=== PATIENT | female | born 1945 | race Caucasian/White ===

== ENCOUNTER 2017-12-29 11:48 | Observation (INO) | payer SELFPAY, MEDICAID ==
[2017-12-29] MEDS: NS 1,000 ML IV ×2 (12:56→16:13)
[2017-12-29] MEDS: PANTOPRAZOLE 40MG INJ (PROTONIX) (C9113) IV (12:56)
[2017-12-29 13:03] LABS: BASO # 0.1 10^3/uL (0.0-0.2); BASO % 0.4 % (0.0-1.0); EOS % 0.3 % (0.0-3.0); HEMATOCRIT 42.3 % (36.0-47.0); HEMOGLOBIN 13.4 g/dl (12.0-15.5); IMMATURE GRANULOCYTE % 0.3 % (0-3.0); LYMPH % 15.1 % (24.0-44.0); MEAN CORPUSCULAR HEMOGLOBIN 28.7 pg (27.0-33.0); MEAN CORPUSCULAR HGB CONC 31.7 g/dl (32.0-36.5); MEAN CORPUSCULAR VOLUME 90.6 fl (80.0-96.0); MONO % 7.2 % (0.0-5.0); NEUTROPHILS # 10.2 10^3/uL (1.8-7.7); NEUTROPHILS % 76.7 % (36.0-66.0); PLATELET COUNT, AUTOMATED 393 10^3/uL (150-450); RED BLOOD COUNT 4.67 10^6/uL (4.00-5.40); RED CELL DISTRIBUTION WIDTH 13.4 % (11.5-14.5); WHITE BLOOD COUNT 13.3 10^3/uL (4.0-10.0)
[2017-12-29 13:18] LABS: AMORPHOUS SEDIMENT RFX SMALL (NEGATIVE); KETONE, URINE AUTO RFX NEGATIVE (NEGATIVE); MUCUS, URINE RFX SMALL (NEGATIVE); NITRITE, URINE AUTO RFX NEGATIVE (NEGATIVE); RBC, URINE AUTO RFX 0 /HPF (0-3); SPECIFIC GRAVITY UR AUTO RFX 1.025 (1.002-1.035); SQUAM EPITHELIAL CELL UR AURFX 2 /HPF (0-6); WBC, URINE AUTO RFX 5 /HPF (0-3)
[2017-12-29 13:19] LABS: LEUKOCYTE ESTERASE UR AUTO RFX 1+ (NEGATIVE)
[2017-12-29 13:41] LABS: ALBUMIN 3.7 GM/DL (3.2-5.2); ALBUMIN/GLOBULIN RATIO 0.95 (1.00-1.93); ALKALINE PHOSPHATASE 116 U/L (45-117); ALT/SGPT 65 U/L (12-78); AMYLASE 77 U/L (25-115); ANION GAP 5 MEQ/L (8-16); AST/SGOT 117 U/L (7-37); BILIRUBIN,DIRECT 0.3 MG/DL (0.0-0.2); BILIRUBIN,TOTAL 0.9 MG/DL (0.2-1.0); BLOOD UREA NITROGEN 18 MG/DL (7-18); CALCIUM LEVEL 8.9 MG/DL (8.8-10.2); CARBON DIOXIDE LEVEL 28 MEQ/L (21-32); CHLORIDE LEVEL 106 MEQ/L (98-107); CREATININE FOR GFR 0.93 MG/DL (0.55-1.30); GLOMERULAR FILTRATION RATE > 60.0 (>39); GLUCOSE, FASTING 115 MG/DL (70-100); LIPASE 533 U/L (73-393); POTASSIUM SERUM 5.1 MEQ/L (3.5-5.1); SODIUM LEVEL 139 MEQ/L (136-145); TOTAL PROTEIN 7.6 GM/DL (6.4-8.2)
[2017-12-29] MEDS ORDERED: ISOVUE-370 76% 100ML VIAL (Q9967) As Ordered (14:20)
[2017-12-29] MEDS: PIPERACILLIN/TAZOBACTAM SOD 3.375 GM in D5W MINI-BAG PLUS 50 ML IV ×2 (16:13→22:51)
[2017-12-29] MEDS ORDERED: KETOROLAC 30 MG/ML VIAL (J1885) IV (21:00)
[2017-12-29] MEDS ORDERED: ONDANSETRON 4MG/2ML VIAL (J2405) IV (21:00)
[2017-12-29] MEDS ORDERED: NORCO, ANEXSIA 5/325MG TABLET (HYDROcodone/ACETAMINOPHEN) PO (21:00)
[2017-12-29] MEDS: SENOKOT S TAB PO (22:50)
[2017-12-29] MEDS: KCL 20MEQ IN D5/0.45NS 1000ML 1,000 ML IV (22:50)
[2017-12-29] MEDS: ACETAMINOPHEN TAB 650MG DOSE (2X325MG) PO (23:14)
[2017-12-30] MEDS: PIPERACILLIN/TAZOBACTAM SOD 3.375 GM in D5W MINI-BAG PLUS 50 ML IV ×2 (04:14→09:22)
[2017-12-30] MEDS: HEPARIN SOD (PORCINE) 5000 UNITS/ML VIAL SC (06:36)
[2017-12-30 07:23] LABS: HEMATOCRIT 37.5 % (36.0-47.0); HEMOGLOBIN 11.8 g/dl (12.0-15.5); MEAN CORPUSCULAR HEMOGLOBIN 28.8 pg (27.0-33.0); MEAN CORPUSCULAR HGB CONC 31.5 g/dl (32.0-36.5); MEAN CORPUSCULAR VOLUME 91.5 fl (80.0-96.0); PLATELET COUNT, AUTOMATED 323 10^3/uL (150-450); RED CELL DISTRIBUTION WIDTH 13.4 % (11.5-14.5)
[2017-12-30 07:53] LABS: ALBUMIN 2.9 GM/DL (3.2-5.2); ALBUMIN/GLOBULIN RATIO 0.85 (1.00-1.93); ALKALINE PHOSPHATASE 95 U/L (45-117); ALT/SGPT 39 U/L (12-78); ANION GAP 5 MEQ/L (8-16); AST/SGOT 24 U/L (7-37); BILIRUBIN,TOTAL 0.7 MG/DL (0.2-1.0); BLOOD UREA NITROGEN 9 MG/DL (7-18); CARBON DIOXIDE LEVEL 28 MEQ/L (21-32); CHLORIDE LEVEL 108 MEQ/L (98-107); CREATININE FOR GFR 0.95 MG/DL (0.55-1.30); GLOMERULAR FILTRATION RATE > 60.0 (>39); GLUCOSE, FASTING 132 MG/DL (70-100); LIPASE 66 U/L (73-393); MAGNESIUM LEVEL 2.1 MG/DL (1.8-2.4); SODIUM LEVEL 141 MEQ/L (136-145); TOTAL PROTEIN 6.3 GM/DL (6.4-8.2)
[2017-12-30] MEDS: SENOKOT S TAB PO (09:22)
[2017-12-30] MEDS: PANTOPRAZOLE 40MG TAB (PROTONIX) PO (09:22)
[2017-12-30] MEDS: KCL 20MEQ IN D5/0.45NS 1000ML 1,000 ML IV (09:23)
== END 2017-12-30 13:45 | disposition home or self-care (01) ==
LOC: M ED 11:48 → M ED INP 20:15 → M PED 22:22
DX: K81.9 Cholecystitis, unspecified (principal); R30.0 Dysuria; F17.210 Nicotine dependence, cigarettes, uncomplicated
CPT/HCPCS: C9113

== ENCOUNTER 2018-02-04 08:32 | Day surgery (SDC) | payer SELFPAY ==
[~2018-02-04 08:32] MED LIST: LIDOCAINE 2% INJ 100 MG/5 ML SDV (FOR ANES.) As Ordered; MIDAZOLAM INJ 2 MG/2 ML VIAL (J2250) As Ordered; PROPOFOL 200 MG/20 ML VIAL As Ordered; ROCURONIUM BROMIDE 50 MG/5 ML VIAL As Ordered; SUCCINYLCHOLINE 100 MG/5 ML SYRINGE (J0330) As Ordered; dexameTHASONE 4 MG/ML 1ML VIAL (J1100) As Ordered; fentaNYL 250 MCG/5 ML INJECTION (J3010) As Ordered
[2018-02-04] MEDS: LR 1,000 ML IV (09:22)
[2018-02-04] MEDS ORDERED: LIDOCAINE 2% JELLY 30 ML As Ordered (10:20)
[2018-02-04] MEDS ORDERED: NEOSTIGMINE 10 MG/10 ML VIAL (J2710) As Ordered (10:20)
[2018-02-04] MEDS ORDERED: PROPOFOL 200 MG/20 ML VIAL As Ordered (10:20)
[2018-02-04] MEDS ORDERED: KETOROLAC 60 MG/2 ML VIAL (J1885) As Ordered (10:20)
[2018-02-04] MEDS ORDERED: ROCURONIUM BROMIDE 50 MG/5 ML VIAL As Ordered (10:20)
[2018-02-04] MEDS ORDERED: GLYCOPYRROLATE INJ 0.2 MG/ML 2 ML VIAL As Ordered (10:20)
[2018-02-04] MEDS ORDERED: dexameTHASONE 4 MG/ML 1ML VIAL (J1100) As Ordered (10:20)
[2018-02-04] MEDS ORDERED: ONDANSETRON 4MG/2ML VIAL (J2405) As Ordered (10:20)
[2018-02-04] MEDS ORDERED: LIDOCAINE 2% INJ 100 MG/5 ML SDV (FOR ANES.) As Ordered (10:20)
[2018-02-04] MEDS ORDERED: MIDAZOLAM INJ 2 MG/2 ML VIAL (J2250) As Ordered (10:21)
[2018-02-04] MEDS ORDERED: fentaNYL 100 MCG/2 ML INJECTION (J3010) As Ordered (10:21)
[2018-02-04] MEDS ORDERED: PHENYLephrine HCL 500 MCG/5 ML (100MCG/ML) SYRINGE (J2370) As Ordered (11:20)
[2018-02-04] MEDS: BUPIVACAINE/EPIN 0.25% 30 ML VIAL As Ordered (11:57)
[2018-02-04] MEDS ORDERED: LABETALOL HCL 100 MG/20 ML VIAL As Ordered (11:59)
[2018-02-04] MEDS: LABETALOL HCL 100 MG/20 ML VIAL IV ×3 (12:25→12:40)
[2018-02-04] MEDS ORDERED: LR 1,000 ML IV (12:45)
[2018-02-04] MEDS ORDERED: NORCO, ANEXSIA 5/325MG TABLET (HYDROcodone/ACETAMINOPHEN) PO (12:45)
[2018-02-04] MEDS ORDERED: ONDANSETRON 4MG/2ML VIAL (J2405) IV (12:45)
[2018-02-04] MEDS: fentaNYL 100 MCG/2 ML INJECTION (J3010) IV ×4 (12:57→13:20)
[2018-02-04] MEDS: PERCOCET 5MG/325MG TAB PO ×2 (13:09→14:19)
[2018-02-04] MEDS ORDERED: PERCOCET 5MG/325MG TAB As Ordered (14:17)
== END 2018-02-04 15:45 | disposition home or self-care (01) ==
LOC: M SDC 08:32
DX: K80.18 Calculus of gallbladder with other cholecystitis without obstruction (principal); I10 Essential (primary) hypertension; Z86.711 Personal history of pulmonary embolism; J45.909 Unspecified asthma, uncomplicated; F17.210 Nicotine dependence, cigarettes, uncomplicated; Z79.899 Other long term (current) drug therapy
CPT/HCPCS: 47562

== ENCOUNTER 2019-05-02 19:24 | Emergency (ER) | payer SELFPAY ==
[~2019-05-02 19:24] MED LIST changes: +AUGM500T34 PO; -LIDOCAINE 2% INJ 100 MG/5 ML SDV (FOR ANES.) As Ordered; +MAGN400C PO; +MELA5TAB21 PO; -MIDAZOLAM INJ 2 MG/2 ML VIAL (J2250) As Ordered; -PROPOFOL 200 MG/20 ML VIAL As Ordered; -ROCURONIUM BROMIDE 50 MG/5 ML VIAL As Ordered; -SUCCINYLCHOLINE 100 MG/5 ML SYRINGE (J0330) As Ordered; -dexameTHASONE 4 MG/ML 1ML VIAL (J1100) As Ordered; -fentaNYL 250 MCG/5 ML INJECTION (J3010) As Ordered
[2019-05-02] MEDS ORDERED: PROAAER10 INH (19:52)
[2019-05-02] MEDS ORDERED: amLODIPine 5 MG TAB PO ONE (20:30)
--- NOTE | 2019-05-02 20:43 | REPVR ---
PROCEDURE INFORMATION: Exam: CT Head Without Contrast Exam date and time: 05/02/2019 8:27 PM Age: 73 years old Clinical indication: Dizziness; Additional info: Hypertension, dizziness TECHNIQUE: Imaging protocol: Computed tomography of the head without contrast. Radiation optimization: All CT scans at this facility use at least one of these dose optimization techniques: automated exposure control; mA and/or kV adjustment per patient size (includes targeted exams where dose is matched to clinical indication); or iterative reconstruction. COMPARISON: No relevant prior studies available. FINDINGS: Brain: Normal. No hemorrhage. Unremarkable white matter. No mass effect. Ventricles: Normal. No ventriculomegaly. Bones/joints: Unremarkable. No acute fracture. Sinuses: Visualized sinuses are unremarkable. No fluid levels. Mastoid air cells: Visualized mastoid air cells are well aerated. Soft tissues: Unremarkable. IMPRESSION: No acute intracranial abnormality. Electronically signed by: Hipolito Lepe On 05/02/2019 20:43:51 PM
[2019-05-02 20:54] VITALS: BP 220/91
[2019-05-02 21:08] LABS: BASO # 0.1 10^3/uL (0.0-0.2); BASO % 0.6 % (0.0-1.0); EOS # 0.1 10^3/uL (0.0-0.5); HEMOGLOBIN 13.5 g/dl (12.0-15.5); LYMPH # 3.2 10^3/uL (1.5-5.0); LYMPH % 38.7 % (24.0-44.0); MEAN CORPUSCULAR HGB CONC 30.7 g/dl (32.0-36.5); MEAN CORPUSCULAR VOLUME 94.6 fl (80.0-96.0); MONO # 0.6 10^3/uL (0.0-0.8); MONO % 7.4 % (0.0-5.0); NEUTROPHILS # 4.3 10^3/uL (1.5-8.5); NEUTROPHILS % 52.1 % (36.0-66.0); PLATELET COUNT, AUTOMATED 336 10^3/uL (150-450); RED BLOOD COUNT 4.65 10^6/uL (4.00-5.40); WHITE BLOOD COUNT 8.2 10^3/uL (4.0-10.0)
[2019-05-02 21:23] LABS: BLOOD UREA NITROGEN 15 MG/DL (7-18); CALCIUM LEVEL 8.7 MG/DL (8.8-10.2); CARBON DIOXIDE LEVEL 30 MEQ/L (21-32); CHLORIDE LEVEL 106 MEQ/L (98-107); CK-MB VALUE MASS 3.1 NG/ML (<3.6); CPK CREATINE PHOSPHOKINASE 91 U/L (26-192); CREATININE FOR GFR 0.93 MG/DL (0.55-1.30); GLOMERULAR FILTRATION RATE > 60.0 (>39); GLUCOSE, FASTING 106 MG/DL (70-100); MB/CK RELATIVE INDEX 3.41 (< OR =4); SODIUM LEVEL 141 MEQ/L (136-145); TROPONIN I < 0.02 NG/ML (< 0.10)
[2019-05-02] MEDS ORDERED: NORV5TAB PO (22:38)
[2019-05-02 22:55] VITALS: BP 133/62
--- NOTE | 2019-05-03 03:27 | REP ---
clinical: Chest pain . Comparison: None . Findings: The mediastinum and cardiac silhouette are stable and within normal limits for portable technique. The lung carvajal are clear without acute consolidation, effusion, or pneumothorax. Skeletal structures are intact. Impression: No acute cardiopulmonary process appreciated. Electronically Signed by Jason Hernandez MD 05/03/2019 03:19 A
--- NOTE | 2019-05-03 15:00 | ECGEPIP ---
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
== END 2019-05-02 22:56 | disposition home or self-care (01) ==
LOC: M ED 19:24 → EDBD 19:24 → M ED 22:56
DX: I10 Essential (primary) hypertension (principal); R94.31 Abnormal electrocardiogram [ECG] [EKG]; J45.909 Unspecified asthma, uncomplicated; Z79.51 Long term (current) use of inhaled steroids; Z79.899 Other long term (current) drug therapy

== ENCOUNTER → 2019-05-12 | Outpatient (REF) | payer SELFPAY ==
[~2019-05-12] MED LIST changes: +NORV5TAB PO; +PROAAER10 INH
[2019-05-12 18:22] LABS: BASO # 0.1 10^3/uL (0.0-0.2); BASO % 0.8 % (0.0-1.0); EOS # 0.1 10^3/uL (0.0-0.5); EOS % 0.8 % (0.0-3.0); HEMATOCRIT 41.7 % (36.0-47.0); HEMOGLOBIN 13.2 g/dl (12.0-15.5); LYMPH # 2.2 10^3/uL (1.5-5.0); LYMPH % 28.5 % (24.0-44.0); MEAN CORPUSCULAR HEMOGLOBIN 30.1 pg (27.0-33.0); MEAN CORPUSCULAR HGB CONC 31.7 g/dl (32.0-36.5); MEAN CORPUSCULAR VOLUME 95.2 fl (80.0-96.0); MONO # 0.5 10^3/uL (0.0-0.8); NEUTROPHILS # 4.7 10^3/uL (1.5-8.5); NEUTROPHILS % 62.2 % (36.0-66.0); PLATELET COUNT, AUTOMATED 329 10^3/uL (150-450); RED BLOOD COUNT 4.38 10^6/uL (4.00-5.40); WHITE BLOOD COUNT 7.6 10^3/uL (4.0-10.0)
[2019-05-12 18:40] LABS: ALBUMIN 3.7 GM/DL (3.2-5.2); ALT/SGPT 19 U/L (12-78); BILIRUBIN,TOTAL 0.5 MG/DL (0.2-1.0); BLOOD UREA NITROGEN 18 MG/DL (7-18); CALCIUM LEVEL 8.7 MG/DL (8.8-10.2); CARBON DIOXIDE LEVEL 28 MEQ/L (21-32); CHLORIDE LEVEL 106 MEQ/L (98-107); CHOLESTEROL LEVEL 210 MG/DL (<200); CHOLESTEROL RISK RATIO 2.727 (<5); CREATININE FOR GFR 0.93 MG/DL (0.55-1.30); FREE T4 1.12 NG/DL (0.76-1.46); GLOMERULAR FILTRATION RATE > 60.0 (>39); GLUCOSE, FASTING 95 MG/DL (70-100); HDL CHOLESTEROL 77 MG/DL (>40); LDL CHOLESTEROL 109 MG/DL (<100); NON-HDL-C 133 MG/DL; POTASSIUM SERUM 4.4 MEQ/L (3.5-5.1); SODIUM LEVEL 142 MEQ/L (136-145); TOTAL PROTEIN 6.6 GM/DL (6.4-8.2); TRIGLYCERIDES LEVEL 122 MG/DL (<150)
[2019-05-12 18:41] LABS: TOTAL 25(OH) VITAMIN D 17.6 NG/ML (30.0-100.0)
[2019-05-12 18:53] LABS: HEMOGLOBIN A1c 6.1 %
== END ==
LOC: M LAB REF 17:55
PROVIDERS: ATTEND Nurse Practitioner Family
DX: Z13.9 Encounter for screening, unspecified (principal); I16.0 Hypertensive urgency

== ENCOUNTER → 2019-10-31 | Outpatient (REF) | payer SELFPAY ==
[2019-11-27 12:23] LABS: BASO % 0.5 % (0.0-1.0); EOS # 0.1 10^3/uL (0.0-0.5); EOS % 0.9 % (0.0-3.0); LYMPH # 2.3 10^3/uL (1.5-5.0); LYMPH % 30.2 % (24.0-44.0); MEAN CORPUSCULAR HEMOGLOBIN 29.9 pg (27.0-33.0); MEAN CORPUSCULAR HGB CONC 31.7 g/dl (32.0-36.5); MEAN CORPUSCULAR VOLUME 94.3 fl (80.0-96.0); MONO # 0.5 10^3/uL (0.0-0.8); MONO % 6.4 % (0.0-5.0); NEUTROPHILS # 4.8 10^3/uL (1.5-8.5); NEUTROPHILS % 61.7 % (36.0-66.0); PLATELET COUNT, AUTOMATED 331 10^3/uL (150-450); RED BLOOD COUNT 4.35 10^6/uL (4.00-5.40); WHITE BLOOD COUNT 7.8 10^3/uL (4.0-10.0)
[2019-12-13 13:16] LABS: ALBUMIN 3.8 GM/DL (3.2-5.2); BILIRUBIN,TOTAL 0.5 MG/DL (0.2-1.0); CHOLESTEROL RISK RATIO 2.835 (<5); CREATININE FOR GFR 1.04 MG/DL (0.55-1.30); GLOMERULAR FILTRATION RATE 55.3 (>39); HEMOGLOBIN A1c 5.8 %; POTASSIUM SERUM 4.5 MEQ/L (3.5-5.1); TOTAL PROTEIN 6.8 GM/DL (6.4-8.2)
== END ==
LOC: M LAB REF 16:32
PROVIDERS: ATTEND Nurse Practitioner Family
DX: R06.09 Other forms of dyspnea (principal); I10 Essential (primary) hypertension; R06.2 Wheezing; R73.03 Prediabetes; Z13.9 Encounter for screening, unspecified; M54.5 Low back pain

== ENCOUNTER → 2019-12-26 | Outpatient (REF) | payer SELFPAY ==
[2019-12-26 17:18] LABS: APPEARANCE, URINE CLEAR (CLEAR); BACTERIA, URINE AUTO NEGATIVE (NEGATIVE); BILIRUBIN, URINE AUTO NEGATIVE (NEGATIVE); BLOOD, URINE BLOOD NEGATIVE (NEGATIVE); COLOR, URINE YELLOW (YELLOW); GLUCOSE, URINE (UA) AUTO NEGATIVE (NEGATIVE); KETONE, URINE AUTO NEGATIVE (NEGATIVE); LEUKOCYTE ESTERASE, URINE AUTO NEGATIVE (NEGATIVE); NITRITE, URINE AUTO NEGATIVE (NEGATIVE); PROTEIN, URINE AUTO NEGATIVE (NEGATIVE); RBC, URINE AUTO 0 /HPF (0-3); SPECIFIC GRAVITY URINE AUTO 1.013 (1.002-1.035); SQUAMOUS EPITHELIAL CELL UR AU 0 /HPF (0-6); UROBILINOGEN, URINE AUTO 0.2 mg/dL (0.0-2.0); WBC, URINE AUTO 2 /HPF (0-3)
== END ==
LOC: M LAB REF 16:24
PROVIDERS: ATTEND Nurse Practitioner Family
DX: R35.0 Frequency of micturition (principal)

== ENCOUNTER → 2020-01-30 | Outpatient (REF) | payer SELFPAY ==
[2020-01-30 17:25] LABS: BASO % 0.6 % (0.0-1.0); EOS # 0.1 10^3/uL (0.0-0.5); HEMOGLOBIN 12.9 g/dl (12.0-15.5); LYMPH # 2.2 10^3/uL (1.5-5.0); LYMPH % 31.5 % (24.0-44.0); MEAN CORPUSCULAR HEMOGLOBIN 29.7 pg (27.0-33.0); MEAN CORPUSCULAR HGB CONC 31.5 g/dl (32.0-36.5); MEAN CORPUSCULAR VOLUME 94.5 fl (80.0-96.0); MONO # 0.6 10^3/uL (0.0-0.8); MONO % 8.6 % (0.0-5.0); NEUTROPHILS # 4.1 10^3/uL (1.5-8.5); PLATELET COUNT, AUTOMATED 341 10^3/uL (150-450); RED BLOOD COUNT 4.34 10^6/uL (4.00-5.40); WHITE BLOOD COUNT 7.1 10^3/uL (4.0-10.0)
[2020-01-30 21:10] LABS: ALBUMIN 3.8 GM/DL (3.2-5.2); BILIRUBIN,TOTAL 0.6 MG/DL (0.2-1.0); CALCIUM LEVEL 9.3 MG/DL (8.8-10.2); CHOLESTEROL RISK RATIO 3.072 (<5); CREATININE FOR GFR 1.09 MG/DL (0.55-1.30); GLOMERULAR FILTRATION RATE 52.4 (>39); POTASSIUM SERUM 4.7 MEQ/L (3.5-5.1); TOTAL PROTEIN 6.7 GM/DL (6.4-8.2)
[2020-01-30 21:14] LABS: TOTAL 25(OH) VITAMIN D 24.9 NG/ML (30.0-100.0)
== END ==
LOC: M LAB REF 16:14
PROVIDERS: ATTEND Nurse Practitioner Family
DX: R06.09 Other forms of dyspnea (principal); I10 Essential (primary) hypertension; Z13.9 Encounter for screening, unspecified; M54.5 Low back pain; R73.03 Prediabetes; E78.00 Pure hypercholesterolemia, unspecified

== ENCOUNTER → 2020-05-16 | Outpatient (REF) | payer SELFPAY ==
[2020-05-16 17:36] LABS: BASO # 0.1 10^3/uL (0.0-0.2); BASO % 0.8 % (0.0-1.0); EOS # 0.1 10^3/uL (0.0-0.5); EOS % 1.1 % (0.0-3.0); HEMATOCRIT 41.7 % (36.0-47.0); HEMOGLOBIN 13.1 g/dl (12.0-15.5); LYMPH # 2.3 10^3/uL (1.5-5.0); LYMPH % 30.5 % (24.0-44.0); MEAN CORPUSCULAR HEMOGLOBIN 29.8 pg (27.0-33.0); MEAN CORPUSCULAR HGB CONC 31.4 g/dl (32.0-36.5); MEAN CORPUSCULAR VOLUME 94.8 fl (80.0-96.0); MONO # 0.5 10^3/uL (0.0-0.8); MONO % 7.1 % (2.0-8.0); NEUTROPHILS # 4.5 10^3/uL (1.5-8.5); NEUTROPHILS % 60.4 % (36.0-66.0); PLATELET COUNT, AUTOMATED 373 10^3/uL (150-450); WHITE BLOOD COUNT 7.5 10^3/uL (4.0-10.0)
[2020-05-16 17:44] LABS: HEMOGLOBIN A1c 5.6 %
[2020-05-16 17:51] LABS: ALBUMIN 3.8 GM/DL (3.2-5.2); BILIRUBIN,TOTAL 0.7 MG/DL (0.2-1.0); CALCIUM LEVEL 9.2 MG/DL (8.8-10.2); CHOLESTEROL RISK RATIO 2.62 (<5); CREATININE FOR GFR 1.2 MG/DL (0.55-1.30); GLOMERULAR FILTRATION RATE 46.9 (>39); POTASSIUM SERUM 4.7 MEQ/L (3.5-5.1); TOTAL PROTEIN 6.9 GM/DL (6.4-8.2)
== END ==
LOC: M LAB REF 16:36
PROVIDERS: ATTEND Nurse Practitioner Family
DX: E78.2 Mixed hyperlipidemia (principal); I10 Essential (primary) hypertension; G47.00 Insomnia, unspecified; R73.03 Prediabetes

== ENCOUNTER 2020-10-12 19:49 | Emergency (ER) | payer OTHER, SELFPAY ==
[~2020-10-12] VITALS: Ht 157.5 cm; Wt 74.2 kg
[2020-10-12] MEDS ORDERED: CYCL-707 (21:49)
[2020-10-12] MEDS ORDERED: AMLO1TAB25 (21:49)
[2020-10-12] MEDS ORDERED: TRAZ-189 (21:49)
[2020-10-12 21:58] LABS: BASO # 0.1 10^3/uL (0.0-0.2); BASO % 0.7 % (0.0-1.0); EOS # 0.2 10^3/uL (0.0-0.5); EOS % 2.3 % (0.0-3.0); HEMATOCRIT 37.7 % (36.0-47.0); LYMPH % 24.3 % (24.0-44.0); MEAN CORPUSCULAR HEMOGLOBIN 30.3 pg (27.0-33.0); MEAN CORPUSCULAR HGB CONC 31.8 g/dl (32.0-36.5); MEAN CORPUSCULAR VOLUME 95.2 fl (80.0-96.0); MONO # 0.7 10^3/uL (0.0-0.8); MONO % 8.1 % (2.0-8.0); NEUTROPHILS # 5.4 10^3/uL (1.5-8.5); NEUTROPHILS % 64.4 % (36.0-66.0); PLATELET COUNT, AUTOMATED 335 10^3/uL (150-450); RED BLOOD COUNT 3.96 10^6/uL (4.00-5.40); WHITE BLOOD COUNT 8.4 10^3/uL (4.0-10.0)
[2020-10-12 22:25] LABS: BLOOD UREA NITROGEN 23 MG/DL (7-18); CALCIUM LEVEL 8.5 MG/DL (8.8-10.2); CARBON DIOXIDE LEVEL 27 MEQ/L (21-32); CHLORIDE LEVEL 109 MEQ/L (98-107); CK-MB VALUE MASS 2.5 NG/ML (<3.6); CPK CREATINE PHOSPHOKINASE 77 U/L (26-192); CREATININE FOR GFR 1.09 MG/DL (0.55-1.30); GLOMERULAR FILTRATION RATE 52.2 (>39); GLUCOSE, FASTING 103 MG/DL (70-100); MB/CK RELATIVE INDEX 3.25 (< OR =4); POTASSIUM SERUM 4.5 MEQ/L (3.5-5.1); SODIUM LEVEL 141 MEQ/L (136-145); TROPONIN I < 0.02 NG/ML (< 0.10)
[2020-10-12] MEDS ORDERED: LABETALOL 100MG/20ML VIAL IV STA (22:37)
[2020-10-12] MEDS ORDERED: OXYMETAZOLINE 0.05% NASAL SPRAY (AFRIN) ONE (22:40)
--- NOTE | 2020-10-12 23:21 | REPVR ---
PROCEDURE INFORMATION: Exam: CT Head without Contrast Exam date and time: 10/12/20 (10:44pm) Age: 75 years old Clinical indication: Epistaxis. History of brain tumor. TECHNIQUE: Imaging protocol: Computed tomography of the head without contrast Radiation optimization: All CT scans at this facility use at least one of these dose optimization techniques: automated exposure control; mA and/or kV adjustment per patient size (includes targeted exams where dose is matched to clinical indication); or iterative reconstruction. COMPARISON: CT HEAD of 05/02/19 FINDINGS: Brain: Age-appropriate atrophic changes. No acute hemorrhage. No mass effect. Cerebral ventricles: No ventriculomegaly. Paranasal sinuses: Visualized sinuses are unremarkable. No air-fluid levels. Mastoid air cells: Visualized mastoid air cells are well aerated. Bones/joints: Unremarkable. No acute fracture. Soft tissues: Unremarkable. IMPRESSION: No acute intracranial pathology. The brain had a similar appearance in 2019. Electronically signed by: Barbara Villalba On 10/12/2020 23:21:18 PM
--- NOTE | 2020-10-12 23:28 | REPVR ---
PROCEDURE INFORMATION: Exam: XR Left Ribs with PA Chest Exam date and time: 10/12/20 (10:42pm) Age: 75 years old Clinical indication: Left rib pain TECHNIQUE: Imaging protocol: XR Left ribs with PA chest Views: 3 views COMPARISON: Portable CXR of 05/02/19 FINDINGS: Top normal heart size (stable appearance). No focal infiltrates. No pleural effusions. No pneumothorax. The left-sided ribs appear intact. Degenerative thoracic spine changes. IMPRESSION: No acute chest pathology. No pneumothorax. No pleural effusions. The left-sided ribs appear intact. Electronically signed by: Barbara Villalba On 10/12/2020 23:28:27 PM
[2020-10-13 00:25] VITALS: BP 168/78
--- NOTE | 2020-10-13 22:05 | ECGEPIP ---
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
== END 2020-10-13 01:01 | disposition home or self-care (01) ==
LOC: M ED 19:49
DX: R04.0 Epistaxis (principal); I10 Essential (primary) hypertension; I45.10 Unspecified right bundle-branch block; R07.81 Pleurodynia; Z85.841 Personal history of malignant neoplasm of brain; R20.2 Paresthesia of skin; Z86.718 Personal history of other venous thrombosis and embolism; Z87.891 Personal history of nicotine dependence; Z79.899 Other long term (current) drug therapy

== ENCOUNTER → 2021-09-09 | Outpatient (CLI) | payer MEDICARE, SELFPAY ==
[~2021-09-09] MED LIST changes: +AMLO1TAB25; +CYCL-707; +TRAZ-189
== END ==
LOC: M RAD 09:40
PROVIDERS: ATTEND Nurse Practitioner Family
DX: R06.09 Other forms of dyspnea (principal)

== ENCOUNTER → 2022-02-17 | Outpatient (REF) | payer MEDICARE ==
[2022-02-17 17:39] LABS: BASO # 0.1 10^3/uL (0.0-0.2); BASO % 0.9 % (0.0-1.0); EOS # 0.1 10^3/uL (0.0-0.5); EOS % 1.1 % (0.0-3.0); HEMATOCRIT 41.4 % (36.0-47.0); HEMOGLOBIN 13.1 g/dl (12.0-15.5); LYMPH # 2.1 10^3/uL (1.5-5.0); LYMPH % 26.5 % (24.0-44.0); MEAN CORPUSCULAR HGB CONC 31.6 g/dl (32.0-36.5); MEAN CORPUSCULAR VOLUME 94.7 fl (80.0-96.0); MONO # 0.6 10^3/uL (0.0-0.8); MONO % 7.3 % (2.0-8.0); NEUTROPHILS # 5.2 10^3/uL (1.5-8.5); NEUTROPHILS % 63.8 % (36.0-66.0); PLATELET COUNT, AUTOMATED 371 10^3/uL (150-450); RED BLOOD COUNT 4.37 10^6/uL (4.00-5.40); WHITE BLOOD COUNT 8.1 10^3/uL (4.0-10.0)
[2022-02-17 18:37] LABS: ALBUMIN 3.9 G/DL (3.2-5.2); BILIRUBIN,TOTAL 0.7 MG/DL (0.3-1.2); CHOLESTEROL RISK RATIO 2.88 (<5); CREATININE FOR GFR 1.11 MG/DL (0.55-1.30); HDL CHOLESTEROL 70.7 MG/DL (>40); LDL CHOLESTEROL 110.7 MG/DL (<100); POTASSIUM SERUM 4.8 MMOL/L (3.5-5.1); TOTAL PROTEIN 6.6 G/DL (5.7-8.2)
== END ==
LOC: M LAB REF 16:41
PROVIDERS: ATTEND Nurse Practitioner Family
DX: E66.9 Obesity, unspecified (principal)

== ENCOUNTER → 2022-05-07 | Outpatient (REF) | payer MEDICARE ==
[2022-05-07 17:07] LABS: CHOLESTEROL RISK RATIO 3.15 (<5); HDL CHOLESTEROL 68.1 MG/DL (>40); LDL CHOLESTEROL 123.5 MG/DL (<100)
== END ==
LOC: M LAB REF 16:08
PROVIDERS: ATTEND Nurse Practitioner Family
DX: R79.89 Other specified abnormal findings of blood chemistry (principal)

== ENCOUNTER → 2022-08-29 | Outpatient (CLI) | payer MEDICARE | LOC: M RAD 13:48 | PROVIDERS: ATTEND Nurse Practitioner Family | DX: M54.50 Low back pain, unspecified (principal); Z98.1 Arthrodesis status ==

== ENCOUNTER 2023-06-05 11:43 | Emergency (ER) | payer MEDICARE ==
[~2023-06-05] VITALS: Ht 165.1 cm; Wt 70.7 kg
[~2023-06-05 11:43] MED LIST changes: -AMLO1TAB25; +AMLO1TAB25 PO; -TRAZ-189; +TRAZ-189 PO
[2023-06-05] MEDS ORDERED: HYDR50TA70 PO (12:00)
[2023-06-05 12:59] LABS: BASO # 0.1 10^3/uL (0.0-0.2); EOS # 0.1 10^3/uL (0.0-0.5); EOS % 0.7 % (0.0-3.0); HEMATOCRIT 38.4 % (36.0-47.0); HEMOGLOBIN 12.4 g/dl (12.0-15.5); LYMPH % 24.2 % (24.0-44.0); MEAN CORPUSCULAR HEMOGLOBIN 30.2 pg (27.0-33.0); MEAN CORPUSCULAR HGB CONC 32.3 g/dl (32.0-36.5); MEAN CORPUSCULAR VOLUME 93.4 fl (80.0-96.0); MONO # 0.5 10^3/uL (0.0-0.8); NEUTROPHILS # 5.6 10^3/uL (1.5-8.5); NEUTROPHILS % 67.9 % (36.0-66.0); PLATELET COUNT, AUTOMATED 409 10^3/uL (150-450); RED BLOOD COUNT 4.11 10^6/uL (4.00-5.40); WHITE BLOOD COUNT 8.3 10^3/uL (4.0-10.0)
[2023-06-05] MEDS: ALBUTEROL 90 MCG/ACT 8GM HFA INHALER INH ONE (13:00)
[2023-06-05] MEDS ORDERED: LIDO1ADH10 TOP (13:22)
[2023-06-05] MEDS ORDERED: ALBU8.5H INH (13:22)
[2023-06-05] MEDS ORDERED: HOME MED LIST COMPLETE! XX SCH (13:25)
[2023-06-05 13:32] LABS: ALBUMIN 3.1 G/DL (3.2-5.2); BILIRUBIN,DIRECT 0.1 MG/DL (<0.4); BILIRUBIN,TOTAL 0.4 MG/DL (0.3-1.2); CALCIUM LEVEL 8.2 MG/DL (8.3-10.6); CREATININE FOR GFR 1.27 MG/DL (0.55-1.30); GLOMERULAR FILTRATION RATE 43.6 (>39); POTASSIUM SERUM 5.3 MMOL/L (3.5-5.1)
[2023-06-05 13:33] LABS: RSV AMPLIFICATION NEGATIVE (NEGATIVE)
[2023-06-05] MEDS: ONDANSETRON 4MG 2ML VIAL IV ONE (13:54)
[2023-06-05] MEDS ORDERED: ISOVUE-370 76% 100ML VIAL As Ordered ONE (14:01)
[2023-06-05 16:50] VITALS: TEMP 98.4
[2023-06-05 17:24] VITALS: BP 162/62; O2SAT 99
== END 2023-06-05 17:25 | disposition home or self-care (01) ==
LOC: M ED 11:43
DX: R10.814 Left lower quadrant abdominal tenderness (principal); K40.90 Unilateral inguinal hernia, without obstruction or gangrene, not specified as recurrent; I10 Essential (primary) hypertension; J45.909 Unspecified asthma, uncomplicated; Z87.891 Personal history of nicotine dependence; Z86.711 Personal history of pulmonary embolism; Z79.52 Long term (current) use of systemic steroids; Z79.83 Long term (current) use of bisphosphonates; Z79.899 Other long term (current) drug therapy
CPT/HCPCS: 74177; 80047; 80048; 80076; 81001; 82150; 83605; 83690; 85025; 87086; 87631; 96374; 99284; J2405; Q9967

== ENCOUNTER → 2023-07-07 | Outpatient (CLI) | payer MEDICARE ==
[~2023-07-07] MED LIST changes: +ALBU8.5H INH; +HYDR50TA70 PO; +LIDO1ADH10 TOP
[2023-07-07 12:54] LABS: CREATININE FOR GFR 1.48 MG/DL (0.55-1.30); GLOMERULAR FILTRATION RATE 36.5 (>39)
== END ==
LOC: M LAB 10:59
PROVIDERS: ATTEND Physician Assistant Medical
DX: Z00.00 Encounter for general adult medical examination without abnormal findings (principal); M54.50 Low back pain, unspecified

== ENCOUNTER → 2023-07-20 | Outpatient (CLI) | payer MEDICARE | LOC: M RAD 10:47 | PROVIDERS: ATTEND Physician Assistant | DX: K40.90 Unilateral inguinal hernia, without obstruction or gangrene, not specified as recurrent (principal) ==

== ENCOUNTER → 2023-08-13 | Outpatient (REF) | payer MEDICARE ==
[2023-08-13 18:04] LABS: BASO # 0.1 10^3/uL (0.0-0.2); BASO % 0.8 % (0.0-1.0); EOS # 0.1 10^3/uL (0.0-0.5); EOS % 1.7 % (0.0-3.0); HEMATOCRIT 42.1 % (36.0-47.0); HEMOGLOBIN 13.7 g/dl (12.0-15.5); LYMPH # 2.1 10^3/uL (1.5-5.0); LYMPH % 29.5 % (24.0-44.0); MEAN CORPUSCULAR HEMOGLOBIN 30.2 pg (27.0-33.0); MEAN CORPUSCULAR HGB CONC 32.5 g/dl (32.0-36.5); MEAN CORPUSCULAR VOLUME 92.7 fl (80.0-96.0); MONO # 0.5 10^3/uL (0.0-0.8); MONO % 7.4 % (2.0-8.0); NEUTROPHILS # 4.3 10^3/uL (1.5-8.5); NEUTROPHILS % 60.3 % (36.0-66.0); PLATELET COUNT, AUTOMATED 361 10^3/uL (150-450); RED BLOOD COUNT 4.54 10^6/uL (4.00-5.40); WHITE BLOOD COUNT 7.2 10^3/uL (4.0-10.0)
[2023-08-13 18:24] LABS: CALCIUM LEVEL 9.1 MG/DL (8.3-10.6); CREATININE FOR GFR 1.38 MG/DL (0.55-1.30); GLOMERULAR FILTRATION RATE 39.6 (>39); POTASSIUM SERUM 5.1 MMOL/L (3.5-5.1)
== END ==
LOC: M LAB REF 16:24
PROVIDERS: ATTEND Physician Assistant
DX: Z01.818 Encounter for other preprocedural examination (principal)

== ENCOUNTER → 2023-08-24 | Outpatient (CLI) | payer MEDICARE | LOC: M RAD 14:57 | PROVIDERS: ATTEND Physician Assistant | DX: Z01.818 Encounter for other preprocedural examination (principal); J98.11 Atelectasis; J84.10 Pulmonary fibrosis, unspecified ==

== ENCOUNTER 2023-09-03 07:33 | Day surgery (SDC) | payer MEDICARE ==
[~2023-09-03] VITALS: Ht 162.6 cm; Wt 70.1 kg
[2023-09-03] MEDS ORDERED: ONDANSETRON 4MG 2ML VIAL As Ordered ONE (08:15)
[2023-09-03] MEDS ORDERED: SUGAMMADEX SODIUM 500 MG/5 ML VIAL (BRIDION) As Ordered ONE (08:15)
[2023-09-03] MEDS ORDERED: LIDOCAINE 2% 100MG/5ML SDV (FOR ANES.) As Ordered ONE (08:15)
[2023-09-03] MEDS ORDERED: KETOROLAC 60MG 2ML VIAL As Ordered ONE (08:15)
[2023-09-03] MEDS ORDERED: propofoL 200 MG/20 ML VIAL As Ordered ONE (08:15)
[2023-09-03] MEDS ORDERED: ROCURONIUM BROMIDE 50MG/5ML VIAL As Ordered ONE (08:15)
[2023-09-03] MEDS ORDERED: fentaNYL 250 MCG/5 ML INJECTION As Ordered ONE (08:16)
[2023-09-03] MEDS ORDERED: MIDAZOLAM INJ 2MG/2ML VIAL As Ordered ONE (08:16)
[2023-09-03] MEDS ORDERED: LACRILUBE (AKWA TEARS) OPHTH OINT 3.5GM As Ordered ONE (08:31)
[2023-09-03] MEDS ORDERED: LR 1,000 ML IV SCH (08:55)
[2023-09-03] MEDS: ceFAZolin SOD 2 GM in IV 1 EA IV ONE (09:47)
[2023-09-03] MEDS ORDERED: ACETAMINOPHEN 1000MG 100ML IV BAG As Ordered ONE (09:59)
[2023-09-03] MEDS ORDERED: hydrALAZINE 20MG/ML 1ML VIAL As Ordered ONE (10:22)
[2023-09-03] MEDS ORDERED: fentaNYL 100 MCG/2 ML INJECTION IV PRN (10:55)
[2023-09-03] MEDS ORDERED: oxyCODONE 5MG TAB PO PRN (10:55)
[2023-09-03] MEDS ORDERED: NORCO, ANEXSIA 5/325MG TABLET (HYDROcodone/ACETAMINOPHEN) PO PRN (11:25)
[2023-09-03] MEDS: MORPHINE 2 MG/ML 1ML VIAL IV PRN (11:42)
[2023-09-03] MEDS: ONDANSETRON 4MG 2ML VIAL IV PRN (11:42)
[2023-09-03 15:08] VITALS: BP 145/65; TEMP 98.2; O2SAT 94
== END 2023-09-03 15:14 | disposition home or self-care (01) ==
LOC: M SDC 07:33
PROVIDERS: ATTEND Surgery
DX: K40.90 Unilateral inguinal hernia, without obstruction or gangrene, not specified as recurrent (principal); I10 Essential (primary) hypertension; K57.92 Diverticulitis of intestine, part unspecified, without perforation or abscess without bleeding; J45.909 Unspecified asthma, uncomplicated; Z79.51 Long term (current) use of inhaled steroids; Z86.711 Personal history of pulmonary embolism; Z79.899 Other long term (current) drug therapy
CPT/HCPCS: 49650; C1781; J0131; J0360; J0665; J0690; J1100; J1885; J2250; J2405; J3010; S2900

== ENCOUNTER → 2023-10-07 | Outpatient (REF) | payer MEDICARE ==
[2023-10-07 14:41] LABS: HEMOGLOBIN A1c 5.5 % (4.0-6.0)
[2023-10-07 14:50] LABS: ALBUMIN 3.6 G/DL (3.2-5.2); ALKALINE PHOSPHATASE 136 U/L (46-116); ALT/SGPT 10 U/L (7.0-40); AST/SGOT < 8 U/L (<34); BILIRUBIN,TOTAL 0.6 MG/DL (0.3-1.2); BLOOD UREA NITROGEN 16 MG/DL (9-23); CALCIUM LEVEL 8.8 MG/DL (8.3-10.6); CARBON DIOXIDE LEVEL 27 MMOL/L (20-31); CHLORIDE LEVEL 105 MMOL/L (98-107); CHOLESTEROL LEVEL 200 MG/DL (<200); CHOLESTEROL RISK RATIO 3.48 (<5); GLOMERULAR FILTRATION RATE 42.3 (>39); GLUCOSE, FASTING 151 MG/DL (74-106); HDL CHOLESTEROL 57.4 MG/DL (>40); LDL CHOLESTEROL 118.8 MG/DL (<100); NON-HDL-C 142.6 MG/DL; POTASSIUM SERUM 4.8 MMOL/L (3.5-5.1); SODIUM LEVEL 139 MMOL/L (136-145); THYROID STIMULATING HORMONE 3.061 uIU/ML (0.55-4.78); TOTAL 25(OH) VITAMIN D 12.6 NG/ML (20.0-100.0); TRIGLYCERIDES LEVEL 119 MG/DL (<150)
== END ==
LOC: M LAB REF 13:01
PROVIDERS: ATTEND Nurse Practitioner Family
DX: Z13.228 Encounter for screening for other metabolic disorders (principal); Z79.899 Other long term (current) drug therapy

== ENCOUNTER → 2023-10-29 | Outpatient (CLI) | payer MEDICARE ==
[~2023-10-29] MED LIST changes: +GASTROGRAFIN SOLUTION 30ML ONE; +ISOVUE-370 76% 100ML VIAL ONE
== END ==
LOC: M PLAIMG 09:25
PROVIDERS: ATTEND Nurse Practitioner Family
DX: K57.32 Diverticulitis of large intestine without perforation or abscess without bleeding (principal); R93.89 Abnormal findings on diagnostic imaging of other specified body structures
CPT/HCPCS: 74177; Q9963; Q9967

== ENCOUNTER → 2024-10-11 | Outpatient (REF) | payer MEDICARE ==
[~2024-10-11] MED LIST changes: -GASTROGRAFIN SOLUTION 30ML ONE; -ISOVUE-370 76% 100ML VIAL ONE
[2024-10-11 14:52] LABS: BASO # 0.1 10^3/uL (0.0-0.2); BASO % 1.0 % (0.0-1.0); EOS # 0.1 10^3/uL (0.0-0.5); EOS % 1.8 % (0.0-3.0); LYMPH # 2.9 10^3/uL (1.5-5.0); LYMPH % 37.1 % (24.0-44.0); MONO # 0.7 10^3/uL (0.0-0.8); MONO % 8.4 % (2.0-8.0); NEUTROPHILS # 4.1 10^3/uL (1.5-8.5); NEUTROPHILS % 51.4 % (36.0-66.0); PLATELET COUNT, AUTOMATED 387 10^3/uL (150-450)
[2024-10-11 14:57] LABS: ALT/SGPT 12.0 U/L (7.0-40); AST/SGOT 10.0 U/L (<34); CALCIUM LEVEL 9.3 MG/DL (8.3-10.6); CARBON DIOXIDE LEVEL 29.0 MMOL/L (20-31); CHLORIDE LEVEL 105.0 MMOL/L (98-107); CHOLESTEROL LEVEL 194.0 MG/DL (<200); CHOLESTEROL RISK RATIO 2.92 (<5); CREATININE FOR GFR 1.41 MG/DL (0.55-1.30); GLOMERULAR FILTRATION RATE 38.2 (>39); LDL CHOLESTEROL 99.3 MG/DL (<100); MAGNESIUM LEVEL 2.0 MG/DL (1.8-2.4); NON-HDL-C 127.7 MG/DL; POTASSIUM SERUM 4.8 MMOL/L (3.5-5.1); SODIUM LEVEL 142.0 MMOL/L (136-145); TRIGLYCERIDES LEVEL 142.0 MG/DL (<150)
[2024-10-11 14:59] LABS: TOTAL 25(OH) VITAMIN D 88.0 NG/ML (20.0-100.0)
[2024-10-11 15:16] LABS: ESTIMATED AVERAGE GLUCOSE 105.0 MG/DL (60-110)
== END ==
LOC: M LAB REF 14:21
PROVIDERS: ATTEND Nurse Practitioner Family
DX: E66.3 Overweight (principal); E55.9 Vitamin D deficiency, unspecified; Z79.899 Other long term (current) drug therapy

== ENCOUNTER → 2024-10-18 | Outpatient (REF) | payer MEDICARE ==
[2024-10-18 15:06] LABS: APPEARANCE, URINE CLEAR (CLEAR); BACTERIA, URINE AUTO NEGATIVE (NEGATIVE); BILIRUBIN, URINE AUTO NEGATIVE (NEGATIVE); BLOOD, URINE BLOOD NEGATIVE (NEGATIVE); GLUCOSE, URINE (UA) AUTO NEGATIVE (NEGATIVE); KETONE, URINE AUTO NEGATIVE (NEGATIVE); LEUKOCYTE ESTERASE, URINE AUTO 1+ (NEGATIVE); NITRITE, URINE AUTO NEGATIVE (NEGATIVE); PROTEIN, URINE AUTO NEGATIVE (NEGATIVE); RBC, URINE AUTO 1 /HPF (0-3); SPECIFIC GRAVITY URINE AUTO 1.012 (1.002-1.035); SQUAMOUS EPITHELIAL CELL UR AU 1 /HPF (0-6); UROBILINOGEN, URINE AUTO 0.2 mg/dL (0.0-2.0); WBC, URINE AUTO 7 /HPF (0-3)
[2024-10-18 15:32] LABS: CREATININE, URINE 58.7 MG/DL
[2024-10-18 15:33] LABS: MALB URINE SIEMENS 6.0 MG/L; MAU/CREAT RATIO 10.2 MCG/MG (0.0-30.0)
== END ==
LOC: M LAB REF 14:11
PROVIDERS: ATTEND Physician Assistant
DX: I10 Essential (primary) hypertension (principal)

== ENCOUNTER → 2024-11-20 | Outpatient (REF) | payer MEDICARE ==
[2024-11-21 13:11] LABS: APPEARANCE, URINE HAZY (CLEAR); BACTERIA, URINE AUTO NEGATIVE (NEGATIVE); BILIRUBIN, URINE AUTO NEGATIVE (NEGATIVE); BLOOD, URINE BLOOD NEGATIVE (NEGATIVE); GLUCOSE, URINE (UA) AUTO NEGATIVE (NEGATIVE); KETONE, URINE AUTO NEGATIVE (NEGATIVE); LEUKOCYTE ESTERASE, URINE AUTO 2+ (NEGATIVE); MUCUS, URINE SMALL (NEGATIVE); NITRITE, URINE AUTO NEGATIVE (NEGATIVE); PROTEIN, URINE AUTO NEGATIVE (NEGATIVE); RBC, URINE AUTO 7 /HPF (0-3); SPECIFIC GRAVITY URINE AUTO 1.021 (1.002-1.035); SQUAMOUS EPITHELIAL CELL UR AU 2 /HPF (0-6); TRANSITIONAL EPITHELIAL AUTO 1 /HPF; UROBILINOGEN, URINE AUTO 2.0 mg/dL (0.0-2.0); WBC, URINE AUTO 48 /HPF (0-3)
== END ==
LOC: M LAB REF 12:39
PROVIDERS: ATTEND Nurse Practitioner Family
DX: R30.0 Dysuria (principal)

== ENCOUNTER 2025-01-15 14:27 | Emergency (ER) | payer MEDICARE ==
[2025-01-15 15:03] LABS: BASO # 0.1 10^3/uL (0.0-0.2); BASO % 0.6 % (0.0-1.0); EOS # 0.1 10^3/uL (0.0-0.5); EOS % 1.0 % (0.0-3.0); LYMPH # 1.8 10^3/uL (1.5-5.0); LYMPH % 22.5 % (24.0-44.0); MONO # 0.7 10^3/uL (0.0-0.8); MONO % 8.6 % (2.0-8.0); NEUTROPHILS # 5.3 10^3/uL (1.5-8.5); NEUTROPHILS % 67.0 % (36.0-66.0); PLATELET COUNT, AUTOMATED 327 10^3/uL (150-450)
[2025-01-15 15:24] LABS: INR 1.02
[2025-01-15 15:25] LABS: CPK CREATINE PHOSPHOKINASE 42 U/L (34-145)
[2025-01-15 15:26] LABS: ALT/SGPT 24 U/L (7.0-40); AST/SGOT 21 U/L (<34); CALCIUM LEVEL 9.1 MG/DL (8.3-10.6); CARBON DIOXIDE LEVEL 26 MMOL/L (20-31); CHLORIDE LEVEL 105 MMOL/L (98-107); CK-MB VALUE MASS < 1.0 NG/ML (<3.6); CREATININE FOR GFR 1.32 MG/DL (0.55-1.30); GLOMERULAR FILTRATION RATE 41.3 (>39); POTASSIUM SERUM 5.1 MMOL/L (3.5-5.1); SODIUM LEVEL 141 MMOL/L (136-145)
[2025-01-15 15:31] LABS: FREE T4 1.23 NG/DL (0.89-1.76)
[2025-01-15 16:22] LABS: CK-MB VALUE MASS < 1.0 NG/ML (<3.6)
[2025-01-15 16:26] LABS: CPK CREATINE PHOSPHOKINASE 40 U/L (34-145)
[2025-01-15] MEDS ORDERED: ISOVUE-370 76% 100 ML VIAL As Ordered ONE (18:19)
[2025-01-15 19:00] LABS: KETONE, URINE AUTO RFX NEGATIVE (NEGATIVE); LEUKOCYTE ESTERASE UR AUTO RFX NEGATIVE (NEGATIVE); MUCUS, URINE RFX SMALL (NEGATIVE); NITRITE, URINE AUTO RFX NEGATIVE (NEGATIVE); RBC, URINE AUTO RFX 3 /HPF (0-3); SQUAM EPITHELIAL CELL UR AURFX 0 /HPF (0-6); WBC, URINE AUTO RFX 0 /HPF (0-3)
[2025-01-15 19:08] LABS: CK-MB VALUE MASS < 1.0 NG/ML (<3.6)
[2025-01-15 19:12] LABS: CPK CREATINE PHOSPHOKINASE 39 U/L (34-145)
[2025-01-15] MEDS: MORPHINE 4 MG/ML 1 ML VIAL IV ONE (22:10)
[2025-01-15] MEDS ORDERED: AMOX875T2 PO (22:55)
[2025-01-15 23:40] VITALS: BP 189/83; TEMP 99.1; O2SAT 96
[2025-01-15] MEDS: AUGMENTIN 875 MG TAB PO ONE (23:41)
== END 2025-01-15 23:43 | disposition home or self-care (01) ==
LOC: M ED 14:27
DX: K57.32 Diverticulitis of large intestine without perforation or abscess without bleeding (principal); I45.10 Unspecified right bundle-branch block; I45.81 Long QT syndrome; I49.1 Atrial premature depolarization; D25.9 Leiomyoma of uterus, unspecified; K59.00 Constipation, unspecified; N28.1 Cyst of kidney, acquired; K76.89 Other specified diseases of liver; I10 Essential (primary) hypertension; J45.909 Unspecified asthma, uncomplicated; F17.200 Nicotine dependence, unspecified, uncomplicated; Z86.711 Personal history of pulmonary embolism; Z79.52 Long term (current) use of systemic steroids; Z79.2 Long term (current) use of antibiotics; Z79.899 Other long term (current) drug therapy
CPT/HCPCS: 71045; 74177; 80048; 80076; 81001; 82550; 82553; 83690; 83880; 84439; 84443; 84484; 85025; 85610; 93005; 93041; 93970; 94760; 96374; 99285; Q9967

== ENCOUNTER 2025-01-18 04:43 | Observation (INO) | payer MEDICARE ==
[~2025-01-18] VITALS: Ht 165.1 cm; Wt 62.3 kg
[~2025-01-18 04:43] MED LIST changes: +AMOX875T2 PO
[2025-01-18 05:29] LABS: BASO # 0.1 10^3/uL (0.0-0.2); BASO % 0.3 % (0.0-1.0); EOS # 0.0 10^3/uL (0.0-0.5); EOS % 0.1 % (0.0-3.0); LYMPH # 0.6 10^3/uL (1.5-5.0); LYMPH % 3.7 % (24.0-44.0); MONO # 1.0 10^3/uL (0.0-0.8); MONO % 5.7 % (2.0-8.0); NEUTROPHILS # 15.6 10^3/uL (1.5-8.5); NEUTROPHILS % 89.7 % (36.0-66.0); PLATELET COUNT, AUTOMATED 343 10^3/uL (150-450)
[2025-01-18 05:54] LABS: KETONE, URINE AUTO RFX NEGATIVE (NEGATIVE); LEUKOCYTE ESTERASE UR AUTO RFX NEGATIVE (NEGATIVE); NITRITE, URINE AUTO RFX NEGATIVE (NEGATIVE); RBC, URINE AUTO RFX 1 /HPF (0-3); SQUAM EPITHELIAL CELL UR AURFX 0 /HPF (0-6); WBC, URINE AUTO RFX 1 /HPF (0-3)
[2025-01-18 06:08] LABS: ALT/SGPT 39.0 U/L (7.0-40); AST/SGOT 20.0 U/L (<34); CALCIUM LEVEL 8.8 MG/DL (8.3-10.6); CARBON DIOXIDE LEVEL 25.0 MMOL/L (20-31); CHLORIDE LEVEL 107.0 MMOL/L (98-107); CREATININE FOR GFR 1.22 MG/DL (0.55-1.30); GLOMERULAR FILTRATION RATE 45.4 (>39); POTASSIUM SERUM 4.7 MMOL/L (3.5-5.1); SODIUM LEVEL 142.0 MMOL/L (136-145)
[2025-01-18] MEDS ORDERED: ISOVUE-370 76% 100 ML VIAL As Ordered ONE (08:11)
[2025-01-18] MEDS: ACETAMINOPHEN *IV* 1,000 MG in IV 1 EA IV ONE (08:37)
[2025-01-18] MEDS: NS (Normal Saline) 0.9% 1,000 ML IV ONE ×2 (08:37→10:16)
[2025-01-18] MEDS: PIPERACILLIN/TAZOBACTAM SOD 4.5 GM in DEXTROSE 5% (D5W) ADV/MINI-BAG 50 ML IV ONE (09:36)
[2025-01-18] MEDS: KETOROLAC 30 MG/ML 1 ML VIAL IV ONE (10:16)
[2025-01-18] MEDS ORDERED: MED REC IN PROGRESS XX SCH (11:00)
[2025-01-18 11:33] LABS: C REACTIVE PROTEIN QUANTITATIV 1.58 MG/DL (<1.0)
[2025-01-18] MEDS ORDERED: AMOX875T2 PO (11:38)
[2025-01-18] MEDS ORDERED: ERGO125013 PO (11:38)
[2025-01-18] MEDS ORDERED: ATOR1TAB19 PO (11:38)
[2025-01-18] MEDS ORDERED: HOME MED LIST COMPLETE! XX SCH (11:40)
[2025-01-18] MEDS ORDERED: VANCOMYCIN HCL 1,000 MG in IV FLUID PLACE HOLDER 1 EA IV SCH (12:00)
[2025-01-18] MEDS: VANCOMYCIN HCL 1,000 MG, VIAL MATE ADAPTER 1 EACH in NS 250 ML IV ONE (14:14)
[2025-01-18 15:37] VITALS: BP 166/79; TEMP 98.4; O2SAT 98
[2025-01-18 15:50] VITALS: BP 146/87; TEMP 97.5; O2SAT 96
[2025-01-18] MEDS: amLODIPine 10 MG TAB PO SCH (17:10)
[2025-01-18 20:32] VITALS: BP 143/69; TEMP 98.1; O2SAT 94
[2025-01-18] MEDS: FIBER-CON 625 MG TAB PO SCH (20:40)
[2025-01-18] MEDS: VANCOMYCIN HCL 750 MG, VIAL MATE ADAPTER 1 EACH in NS 250 ML IV SCH (20:40)
[2025-01-18] MEDS: AUGMENTIN 875 MG TAB PO SCH (20:40)
[2025-01-18] MEDS: ATORVASTATIN 10 MG TAB PO SCH (20:40)
[2025-01-18] MEDS: DOCUSATE SODIUM 100 MG CAPSULE PO SCH (20:40)
[2025-01-18] MEDS: ACETAMINOPHEN 325 MG TAB PO PRN (20:40)
[2025-01-19 05:46] VITALS: BP 173/84; TEMP 97.5; O2SAT 95; O2SAT 96
[2025-01-19 08:17] LABS: BASO # 0.1 10^3/uL (0.0-0.2); BASO % 0.6 % (0.0-1.0); EOS # 0.1 10^3/uL (0.0-0.5); EOS % 0.8 % (0.0-3.0); LYMPH # 1.2 10^3/uL (1.5-5.0); LYMPH % 10.9 % (24.0-44.0); MONO # 0.9 10^3/uL (0.0-0.8); MONO % 8.6 % (2.0-8.0); NEUTROPHILS # 8.4 10^3/uL (1.5-8.5); NEUTROPHILS % 78.7 % (36.0-66.0); PLATELET COUNT, AUTOMATED 340 10^3/uL (150-450)
[2025-01-19 08:43] LABS: CALCIUM LEVEL 8.9 MG/DL (8.3-10.6); CARBON DIOXIDE LEVEL 24.0 MMOL/L (20-31); CHLORIDE LEVEL 109.0 MMOL/L (98-107); CREATININE FOR GFR 1.14 MG/DL (0.55-1.30); GLOMERULAR FILTRATION RATE 49.3 (>39); POTASSIUM SERUM 4.2 MMOL/L (3.5-5.1); SODIUM LEVEL 142.0 MMOL/L (136-145)
[2025-01-19] MEDS ORDERED: LIDOCAINE 5% PATCH TD SCH (09:00)
[2025-01-19] MEDS: MIRALAX *UNIT DOSE* 17 GM PACKET PO SCH (09:31)
[2025-01-19 09:32] VITALS: BP 173/84
[2025-01-19] MEDS: VANCOMYCIN HCL 1,000 MG, VIAL MATE ADAPTER 1 EACH in NS 250 ML IV SCH (09:33)
[2025-01-19] MEDS ORDERED: traMADol 50 MG TAB PO PRN (10:45)
[2025-01-19] MEDS ORDERED: TRAM50TA2 PO (11:45)
[2025-01-19] MEDS ORDERED: SENN-23 PO (11:45)
[2025-01-19] MEDS ORDERED: ACET-897 PO (11:45)
[2025-01-19] MEDS ORDERED: LIDO5TD TD (11:45)
== END 2025-01-19 14:24 | disposition home or self-care (01) ==
LOC: M ED 04:43 → M ED INP 11:56 → INTOOBSV 11:56 → M MS5PR 15:37
PROVIDERS: ADMIT Internal Medicine Nephrology; ATTEND Internal Medicine Nephrology
DX: M71.22 Synovial cyst of popliteal space [Baker], left knee (principal); M17.0 Bilateral primary osteoarthritis of knee; I12.9 Hypertensive chronic kidney disease with stage 1 through stage 4 chronic kidney disease, or unspecified chronic kidney disease; E78.5 Hyperlipidemia, unspecified; K59.00 Constipation, unspecified; R26.81 Unsteadiness on feet; R50.9 Fever, unspecified; Z79.2 Long term (current) use of antibiotics; Z79.899 Other long term (current) drug therapy; N18.30 Chronic kidney disease, stage 3 unspecified; J44.9 Chronic obstructive pulmonary disease, unspecified; Z90.49 Acquired absence of other specified parts of digestive tract; F17.200 Nicotine dependence, unspecified, uncomplicated; R09.89 Other specified symptoms and signs involving the circulatory and respiratory systems; I45.10 Unspecified right bundle-branch block; I45.81 Long QT syndrome; Z86.711 Personal history of pulmonary embolism
CPT/HCPCS: 36415; 71045; 73552; 73590; 74177; 80048; 80076; 80202; 81001; 82550; 82553; 83605; 83690; 83880; 84145; 84439; 84443; 84484; 85025; 85610; 85652; 86140; 87040; 87486; 87581; 87633; 87798; 93005; 93041; 93970; 93971; 94760; 96365; 96366; 96367; 96374; 96375; 96376; 97116; 97161; 97165; 99285; G0378; J0131; J1885; J2543; J3373; Q9967

== ENCOUNTER → 2025-01-29 | Outpatient (CLI) | payer MEDICARE ==
[~2025-01-29] MED LIST changes: +ACET-897 PO; +ATOR1TAB19 PO; +ERGO125013 PO; +LIDO5TD TD; +SENN-23 PO; +TRAM50TA2 PO
== END ==
LOC: M WUC 08:55
PROVIDERS: ATTEND Student in an Organized Health Care Education/Training Program
DX: M25.532 Pain in left wrist (principal); S62.232A Other displaced fracture of base of first metacarpal bone, left hand, initial encounter for closed fracture; X58.XXXA Exposure to other specified factors, initial encounter; Y92.9 Unspecified place or not applicable; Y93.9 Activity, unspecified; Y99.9 Unspecified external cause status

== ENCOUNTER → 2025-02-15 | Outpatient (CLI) | payer MEDICARE | LOC: M SOG 07:35 | PROVIDERS: ATTEND Orthopaedic Surgery Hand Surgery | DX: M79.645 Pain in left finger(s) (principal); S62.609D Fracture of unspecified phalanx of unspecified finger, subsequent encounter for fracture with routine healing; X58.XXXD Exposure to other specified factors, subsequent encounter; Y92.9 Unspecified place or not applicable; Y93.9 Activity, unspecified; Y99.9 Unspecified external cause status ==

== ENCOUNTER → 2025-03-13 | Outpatient (CLI) | payer MEDICARE | LOC: M SOG 07:43 | PROVIDERS: ATTEND Physician Assistant | DX: S62.232D Other displaced fracture of base of first metacarpal bone, left hand, subsequent encounter for fracture with routine healing (principal) ==